=== PATIENT | male | born 1940 | race Caucasian/White ===

== ENCOUNTER → 2017-10-24 | Day surgery (SDC) | payer MEDICARE ==
[~2017-10-24] MED LIST: AMLODIPINE BESYL5 MG PO; ASPIRIN81 MG; ATORVASTATIN CA10 MG PO; BENZONATATE100 MG PO; DEXAMETHASONE SOD PHOS INJ 4 MG/ML VIAL ONE; FENOFIBRATE145 MG; FENTANYL CITRATE/PF 100MCG/2 ML INJ ONE; HYDRALAZINE HCL 20 MG/ML VIAL ONE; HYOSCYAMINE 0.125 MG TAB SL ONE; IOPAMIDOL 610MG/1ML 300 MG/ML VIAL IV ONE; LEVOFLOXACIN 500MG/D5W 100ML 100 ML IV ONE; LIDOCAINE HCL 2% LOCAL INJ 5 ML SDV VIAL INJ ONE; LISINOPRIL10 MG PO; METFORMIN HCL500 MG PO; METOPROLOL SUCC50 MG PO; MIDAZOLAM HCL 2 MG/2 ML VIAL ONE; ONDANSETRON HCL INJ 2 MG/ML VIAL ONE; PROPOFOL IV EMULSION 10 MG/ML 20 ML VIAL ONE; SEVOFLURANE INHAL SOLN 250 ML PEN BTL ONE
--- OUTSIDE RECORDS SUMMARY | 2017-10-24 09:48 | XMS REPORT | Clinical Summary ---
Author Author [facility] Organization [facility] Address Unknown Phone Unavailable Care Team Providers Care Quill Fixer Name Role Phone Dali Jesus MD PCP Allergies Not on File Current Medications Not on file Active Problems Not on file Encounters Date Type Specialty Care Team Description 10/10/2017 Hospital Radiology Alexx Perez, Calculus of kidney; Encounter Calculus of ureter 10/10/2017 Ancillary Radiology Alexx Perez, Calculus of kidney; Orders Calculus of ureter 10/08/2017 Hospital Radiology Alexx Perez, Calculus of kidney Encounter 09/20/2017 Transcribe Access Alexx Perez, Calculus of kidney Orders (Primary Dx) after 10/23/2016 Social History Tobacco Use Types Packs/Day Years Used Date Never Assessed Sex Assigned at Date Recorded Not on file Last Filed Vital Signs Not on file Plan of Treatment Health Maintenance Due Date Last Done Comments SHINGRIX VACCINE (#1) 1990 ZOSTER VACCINE 2000 PNEUMOCOCCAL 2005 POLYSACCHARIDE VACCINE AGE 65 AND OVER PNEUMOCOCCAL-13 2005 INFLUENZA VACCINE 01/30/2018 Results * ECG 12 lead (10/11/2017 2:10 PM) Component Value Ref Range Ventricular rate 69 Atrial rate 69 NM interval 214 QRSD interval 82 QT interval 396 QTC interval 424 P axis 1 72 QRS axis 1 55 T wave axis 84 EKG impression Sinus rhythm with 1st degree AV block with occasional premature ventricular complexes- Specimen Performing Laboratory [facility] [address] [place] [address] * XR Abdomen 1 Vw (10/10/2017 11:45 AM) Specimen Performing Laboratory [facility] [address] [place] [address] Narrative EXAMINATION:XR ABDOMEN 1 VW CLINICAL HISTORY:N20.0 Calculus of kidney, N20.1 Calculus of ureter COMPARISON:CT abdomen and pelvis without contrast from 10/08/2017 IMPRESSION: There is a rounded calcification overlying the anatomic location of the right renal pelvis measuring 1.6 x 1.3 cm. This likely represents the stone previously seen within the right renal pelvis on previous CT from 10/08/2017. Other punctate calcifications are seen to overlie the lower pole of the right kidney measuring up to 0.2 cm in size. No definite calcifications are seen to overlie the left kidney. No calcifications are seen within the pelvis. A nonspecific, nonobstructive bowel gas pattern is noted. No dilated gas-filled loops of large or small bowel. The bones of the abdomen and pelvis are unremarkable. Multiple calcified granulomas are seen within both lung bases. [facility]-[id number] Procedure Note Interface, Radiology Results Incoming - 10/10/2017 2:14 PM CDT EXAMINATION: XR ABDOMEN 1 VW CLINICAL HISTORY: N20.0 Calculus of kidney, N20.1 Calculus of ureter COMPARISON: CT abdomen and pelvis without contrast from 10/08/2017 IMPRESSION: There is a rounded calcification overlying the anatomic location of the right renal pelvis measuring 1.6 x 1.3 cm. This likely represents the stone previously seen within the right renal pelvis on previous CT from 10/08/2017. Other punctate calcifications are seen to overlie the lower pole of the right kidney measuring up to 0.2 cm in size. No definite calcifications are seen to overlie the left kidney. No calcifications are seen within the pelvis. A nonspecific, nonobstructive bowel gas pattern is noted. No dilated gas-filled loops of large or small bowel. The bones of the abdomen and pelvis are unremarkable. Multiple calcified granulomas are seen within both lung bases. [facility]-[id number] * CT Abdomen Pelvis Wo Contrast (10/08/2017 12:00 PM) Specimen Performing Laboratory [facility] [address] [place] [address] Narrative EXAMINATION:CT ABDOMEN PELVIS WO CONTRAST CLINICAL HISTORY:N20.0 Calculus of kidney, R O KIDNEY STONES TECHNIQUE: Multiple axial images of the abdomen and pelvis were obtained without intravenous administration of iodinated contrast. Sagittal and coronal computerized reformatted images were also obtained. The lack of intravenous contrast reduces the sensitivity of detecting solid organ disease. CT scans are performed using radiation dose reduction techniques. Technical factors are evaluated and adjusted to ensure appropriate moderation of exposure. Automated dose management technology is applied to adjust radiation exposure while achieving a diagnostic quality image. COMPARISON:None FINDINGS: There is a 1.3 x 1.0 cm calculus within the right renal pelvis. Smaller punctate 2-3 mm calculi are present within the mid and lower pole calyces of the right kidney. Mild right-sided hydronephrosis is present. Punctate 2 mm calculi present in the mid and lower pole calyces of the left kidney. A linear bandlike calcification is seen dependently within the bladder measuring approximately 2-3 mm in thickness but spanning the posterior wall the bladder measuring 5.0 cm in length. This may reflect bladder wall calcifications or possibly innumerable layering bladder calculi. The unenhanced spleen, adrenal glands, pancreas, gallbladder, and liver are unremarkable. There is calcified plaque within the abdominal aorta which is normal in caliber. There is no abdominal lymphadenopathy or ascites. No bowel obstruction is present. There are diverticula within the colon without findings of diverticulitis. Appendix is normal. There is a tiny fat-containing periumbilical hernia. The prostate gland is enlarged and measures 5.6 cm in AP dimension by 6.6 cm in transverse dimension by 6.2 cm in craniocaudal dimension. There is no pelvic mass or pelvic lymphadenopathy. A small fat-containing right inguinal hernia is present. Coronary artery calcifications are present. Innumerable noncalcified and calcified granulomas are present in the lung bases. There are degenerative changes of the lower thoracic and lumbosacral spine. Chronic appearing compression deformity L1 vertebral body is noted. IMPRESSION: 1.A 1.3 x 1.0 cm calculus is present in the right renal pelvis. There is mild right hydronephrosis. Smaller punctate 2-3 mm calculi are present within the mid to lower pole calyces of both kidneys. 2.A linear bandlike calcification in the dependent portion bladder measuring 2-3 mm in thickness may reflect either bladder wall calcifications are possibly innumerable bladder calculi. 3.Enlargement of the prostate gland [id number] Procedure Note Hm Interface, Radiology Results Incoming - 10/08/2017 12:17 PM CDT EXAMINATION: CT ABDOMEN PELVIS WO CONTRAST CLINICAL HISTORY: N20.0 Calculus of kidney, R O KIDNEY STONES TECHNIQUE: Multiple axial images of the abdomen and pelvis were obtained without intravenous administration of iodinated contrast. Sagittal and coronal computerized reformatted images were also obtained. The lack of intravenous contrast reduces the sensitivity of detecting solid organ disease. CT scans are performed using radiation dose reduction techniques. Technical factors are evaluated and adjusted to ensure appropriate moderation of exposure. Automated dose management technology is applied to adjust radiation exposure while achieving a diagnostic quality image. COMPARISON: None FINDINGS: There is a 1.3 x 1.0 cm calculus within the right renal pelvis. Smaller punctate 2-3 mm calculi are present within the mid and lower pole calyces of the right kidney. Mild right-sided hydronephrosis is present. Punctate 2 mm calculi present in the mid and lower pole calyces of the left kidney. A linear bandlike calcification is seen dependently within the bladder measuring approximately 2-3 mm in thickness but spanning the posterior wall the bladder measuring 5.0 cm in length. This may reflect bladder wall calcifications or possibly innumerable layering bladder calculi. The unenhanced spleen, adrenal glands, pancreas, gallbladder, and liver are unremarkable. There is calcified plaque within the abdominal aorta which is normal in caliber. There is no abdominal lymphadenopathy or ascites. No bowel obstruction is present. There are diverticula within the colon without findings of diverticulitis. Appendix is normal. There is a tiny fat-containing periumbilical hernia. The prostate gland is enlarged and measures 5.6 cm in AP dimension by 6.6 cm in transverse dimension by 6.2 cm in craniocaudal dimension. There is no pelvic mass or pelvic lymphadenopathy. A small fat-containing right inguinal hernia is present. Coronary artery calcifications are present. Innumerable noncalcified and calcified granulomas are present in the lung bases. There are degenerative changes of the lower thoracic and lumbosacral spine. Chronic appearing compression deformity L1 vertebral body is noted. IMPRESSION: 1. A 1.3 x 1.0 cm calculus is present in the right renal pelvis. There is mild right hydronephrosis. Smaller punctate 2-3 mm calculi are present within the mid to lower pole calyces of both kidneys. 2. A linear bandlike calcification in the dependent portion bladder measuring 2-3 mm in thickness may reflect either bladder wall calcifications are possibly innumerable bladder calculi. 3. Enlargement of the prostate gland [id number] after 10/23/2016 Insurance Payer Benefit Subscriber ID Type Phone Address Plan / Group [facility] MEDIC[facility] UNITED/CAR xxxxxxxxx HMO E ROBERT T [facility] [place] [address]
--- NOTE | 2017-10-24 11:31 | Diagnostic Imaging Report ---
PROCEDURE: Frontal and lateral views of the chest. COMPARISON: None. INDICATIONS: PRE OP FOR CALCULUS OF THE KIDNEY FINDINGS: Lines/tubes: None. Lungs: The lungs are well inflated and clear. There is no evidence of pneumonia or pulmonary edema. Numerous punctate calcified granuloma are present in the lungs bilaterally. Pleura: There is no pleural effusion or pneumothorax. Heart and mediastinum: The heart and the mediastinum are normal. Atherosclerotic calcifications. Bones: No acute bony abnormality. Small metallic plate projects over the right anterior chest wall. Degenerative changes of the thoracic spine. IMPRESSION: No acute radiographic abnormality. Dictated by: Ryan Schmidt M.D. on 10/24/2017 at 11:32 Electronically approved by: Ryan Schmidt M.D. on 10/24/2017 at 11:32
--- NOTE | 2017-10-24 15:02 | Operative Report ---
DATE OF PROCEDURE: October 24, 2017 PREOPERATIVE DIAGNOSES 1. Large right renal calculus 15 x 15 mm. 2. Multiple bladder calculi, over 50. 3. Prostatic obstruction. POSTOPERATIVE DIAGNOSES 1. Large right renal calculus 15 x 15 mm. 2. Multiple bladder calculi, over 50. 3. Prostatic obstruction. OPERATIONS 1. Cystourethroscopy and evacuation of bladder calculi, vesicolitholapaxy. 2. Insertion of right double-J urethral stent, 6 Russian x 26 cm. 3. Right renal extracorporeal shock wave lithotripsy. [employer]CHANDISER: Dr. Shimon Cadet. ANESTHETIC: General. Mr. Lares is a 76-year-old male who presented with a chief complaint of acute onset of severe pain on the right side. Workup showed that he has a large bladder calculus, about 15 x 15, in the right renal pelvis. He underwent a complete urological workup including cystoscopy which showed multiple bladder calculi, over 50. This patient was placed on the table in the lithotomy position and was prepped and draped in a sterile manner after satisfactory anesthesia. A #23 Russian cystoscope was used and cystourethroscopy was performed and it showed the urethra to be normal. The prostatic urethra was about 4 cm long, bilobar and occlusive. Cystoscopy was then performed using both right angle and the Foroblique lens and it was noted there were multiple bladder calculi, over 50. Both ureteral orifices were seen and were within normal position, configuration efflux. The bladder wall was markedly trabeculated. Under direct vision and fluoroscopic control, a 0.38 flexible tip Glidewire was then passed through the working channel of the cystoscope through the right ureteral orifice and then under direct vision and fluoroscopic control, was passed all the way out to the renal pelvis. A 6-Russian x 26 cm double-J stent was threaded over the guidewire through the cystoscope through the right ureteral orifice and again under direct and fluoroscopic control was passed all the way up to the renal pelvis. Leaving the upper end of the stent in the renal pelvis and the lower end of the stent in the bladder. The guidewire was removed. The bladder was drained and the cystoscope removed. This patient was then placed on the table in the supine position and the stone was brought up into view between F1 and F2 of the fluoroscopic monitors of the lithotripsy. The lithotripsy was then stopped, stopping at 2 kV and slowly and gradually increased to 7 kV. Observation of the stone pulverization was done at 200-250 shocks. It was felt that at 4,000 shocks the stone has almost completely pulverized except for 2 harder areas about 4 or 5 mm in diameter. Patient tolerated the procedure well and was taken to the recovery room in satisfactory condition. Plans for this patient is to be placed on Macrodantin 50 mg 1 twice a day for three weeks. Ultracet tablet 1 every 6 to 8 hours p.r.n. Ditropan 5 mg 1 twice a day. He is to return to the office in two weeks. Job#: [id number] JESSICA
== END | disposition home or self-care (01) ==
LOC: OR 09:46
PROVIDERS: ATTEND Specialist
DX: N21.0 Calculus in bladder (principal); N20.0 Calculus of kidney; N40.0 Benign prostatic hyperplasia without lower urinary tract symptoms; N32.0 Bladder-neck obstruction; I10 Essential (primary) hypertension; I25.10 Atherosclerotic heart disease of native coronary artery without angina pectoris; E11.9 Type 2 diabetes mellitus without complications; Z79.84 Long term (current) use of oral hypoglycemic drugs; Z01.818 Encounter for other preprocedural examination; F17.210 Nicotine dependence, cigarettes, uncomplicated; Z88.0 Allergy status to penicillin; Z95.2 Presence of prosthetic heart valve; Z79.82 Long term (current) use of aspirin
CPT/HCPCS: 36415; 50590; 52332; 71046; 82948; J0360; J1100; J1956; J2001; J2250; J2405; Q9967

== ENCOUNTER → 2017-11-07 | Day surgery (SDC) | payer MEDICARE ==
[~2017-11-07] MED LIST changes: -HYDRALAZINE HCL 20 MG/ML VIAL ONE; -HYOSCYAMINE 0.125 MG TAB SL ONE; -IOPAMIDOL 610MG/1ML 300 MG/ML VIAL IV ONE; +NITROFURANTOIN100 MG; +OXYBUTYNIN CHLOR5 MG PO; +TAMSULOSIN HCL0.4 MG
--- OUTSIDE RECORDS SUMMARY | 2017-11-07 07:37 | XMS REPORT | Clinical Summary ---
Author Author [facility] Address Unknown Phone Unavailable Care Team Providers Care General Warehouse Associate Name Role Phone Dali Jesus MD PCP Allergies Active Allergy Reactions Severity Noted Date Comments Penicillins 10/26/2017 unknown Current Medications No known medications Active Problems Not on file Encounters Date Type Specialty Care Team Description 10/29/2017 Hospital Radiology Alexx Perez, Calculus of ureter Encounter 10/29/2017 Ancillary Radiology Alexx Perez, Calculus of ureter Orders 10/26/2017 [facility] initial encounter MD Emiliano (Primary Dx); Sprain of right ankle, unspecified ligament, initial encounter; Contusion of multiple sites of right lower extremity, initial encounter 10/10/2017 [facility] Radiology Alexx Perez, Calculus of kidney; Encounter Calculus of ureter 10/10/2017 Ancillary Radiology Alexx Perez, Calculus of kidney; Orders Calculus of ureter 10/08/2017 Hospital Radiology Alexx Perez, Calculus of kidney Encounter 09/20/2017 Transcribe Access Alexx Perez, Calculus of kidney Orders (Primary Dx) after 11/06/2016 Social History Tobacco Use Types Packs/Day Years Used Date Never Smoker Smokeless Tobacco: Never Used Alcohol Use Drinks/Week oz/Week Comments No Sex Assigned at Date Recorded Not on file Last Filed Vital Signs Vital Sign Reading Time Taken Blood Pressure 121/68 10/26/2017 12:43 PM CDT Pulse 68 10/26/2017 12:43 PM CDT Temperature 36.3 C (97.4 F) 10/26/2017 11:13 AM CDT Respiratory Rate 18 10/26/2017 12:43 PM CDT Oxygen Saturation 97% 10/26/2017 12:43 PM CDT Inhaled Oxygen - - Concentration Weight 68 kg (150 lb) 10/26/2017 11:19 AM CDT Height 177.8 cm (5' 10") 10/26/2017 11:19 AM CDT Body Mass Index 21.52 10/26/2017 11:19 AM CDT Plan of Treatment Health Maintenance Due Date Last Done Comments SHINGRIX VACCINE (#1) 1990 ZOSTER VACCINE 2000 PNEUMOCOCCAL 2005 POLYSACCHARIDE VACCINE AGE 65 AND OVER PNEUMOCOCCAL-13 2005 INFLUENZA VACCINE 01/30/2018 Procedures Procedure Name Priority Date/Time Associated Diagnosis Comments SPLINT APPLICATION Routine 10/26/2017 Results for this 11:46 AM CDT procedure are in the results section. after 11/06/2016 Results * XR Abdomen 1 Vw (10/29/2017 2:43 PM) Only the most recent of 2 results within the time period is included. Specimen Performing [place] [address] Narrative EXAMINATION:XR ABDOMEN 1 VW CLINICAL HISTORY:N20.1 Calculus of ureter COMPARISON:None. IMPRESSION: Patient status post lithotripsy. A conglomerate of small linear calcification lateral to the right lower pole the largest calcification which was present previously is no longer present A stent is present in the right ureter. No calcifications identified along the course of the stent There is a nonspecific bowel gas pattern. No free air is identified. Calcified granuloma in the lumbar bases [facility]-[id number] Procedure Note Interface, Radiology Results Incoming - 10/29/2017 3:26 PM CDT EXAMINATION: XR ABDOMEN 1 VW CLINICAL HISTORY: N20.1 Calculus of ureter COMPARISON: None. IMPRESSION: Patient status post lithotripsy. A conglomerate of small linear calcification lateral to the right lower pole the largest calcification which was present previously is no longer present A stent is present in the right ureter. No calcifications identified along the course of the stent There is a nonspecific bowel gas pattern. No free air is identified. Calcified granuloma in the lumbar bases [id number] * XR Tibia Fibula 2 Vw Right (10/26/2017 12:05 PM) Specimen Performing Laboratory [place] [address] Narrative Procedure:XR TIBIA FIBULA 2 VW RIGHT REFERRING PHYSICIAN: MADINA ANN HISTORY:BONE PAINLEG COMPARISON: None FINDINGS: No evidence of fracture or dislocation is seen. The joint spaces are maintained. No osteolytic or osteoblastic lesion is identify. Mild atherosclerotic calcifications are noted. Regional soft tissue is unremarkable. No radiopaque foreign body is seen. XR TIBIA FIBULA 2 VW RIGHTacquired. IMPRESSION: No radiographic evidence of acute fracture or dislocation of the right tibia or fibula. [id number] Procedure Note Interface, Radiology Results Incoming - 10/26/2017 12:15 PM CDT Procedure:XR TIBIA FIBULA 2 VW RIGHT REFERRING PHYSICIAN: MADINA ANN HISTORY: BONE PAIN LEG COMPARISON: None FINDINGS: No evidence of fracture or dislocation is seen. The joint spaces are maintained. No osteolytic or osteoblastic lesion is identify. Mild atherosclerotic calcifications are noted. Regional soft tissue is unremarkable. No radiopaque foreign body is seen. XR TIBIA FIBULA 2 VW RIGHT acquired. IMPRESSION: No radiographic evidence of acute fracture or dislocation of the right tibia or fibula. [id number] * XR Ankle 3+ Vw Right (10/26/2017 12:04 PM) Specimen Performing Laboratory [facility] [address] [place] [address] Narrative Procedure:XR ANKLE 3VW RIGHT REFERRING PHYSICIAN:SHREE MULTANI HISTORY: pain COMPARISON: None FINDINGS: No fracture or dislocation is seen about the right ankle. The ankle mortise is maintained. No osteolytic or osteoblastic lesion is seen. Regional soft tissue is unremarkable. XR ANKLE 3VW RIGHT IMPRESSION: Negative right ankle exam with no evidence of acute fracture or dislocation. [id number] Procedure Note Hm Interface, Radiology Results Incoming - 10/26/2017 12:14 PM CDT Procedure:XR ANKLE 3 VW RIGHT REFERRING PHYSICIAN:SHREE MULTANI HISTORY: pain COMPARISON: None FINDINGS: No fracture or dislocation is seen about the right ankle. The ankle mortise is maintained. No osteolytic or osteoblastic lesion is seen. Regional soft tissue is unremarkable. XR ANKLE 3 VW RIGHT IMPRESSION: Negative right ankle exam with no evidence of acute fracture or dislocation. [id number] * SPLINT APPLICATION (10/26/2017 11:46 AM) Narrative Shree Multani MD 10/26/20174:47 PM Splint Application Performed by: MADINA ANN Authorized by: MADINA ANN Consent: Consent obtained:Verbal Consent given by:Patient Risks discussed:Discoloration, numbness, pain and swelling Alternatives discussed:No treatment Pre-procedure details: Sensation:Normal Skin color:Kaka Procedure details: Laterality:Right Location:Ankle Ankle:R ankle Cast type:Short leg Splint type:Ankle stirrup Supplies:Prefabricated splint Post-procedure details: Pain:Improved Sensation:Normal Skin color:Kaka Patient tolerance of procedure:Tolerated well, no immediate complications * ECG 12 lead (10/11/2017 2:10 PM) Component Value Ref Range Ventricular rate 69 Atrial rate 69 NE interval 214 QRSD interval 82 QT interval 396 QTC interval 424 P axis 1 72 QRS axis 1 55 T wave axis 84 EKG impression Sinus rhythm with 1st degree AV block with occasional premature ventricular complexes- Specimen Performing Laboratory [facility] [address] [place] [address] * CT Abdomen Pelvis Wo Contrast (10/08/2017 12:00 PM) Specimen Performing Laboratory [facility] [address] [place] [address] Narrative EXAMINATION:CT ABDOMEN PELVIS WO CONTRAST CLINICAL [...] bladder calculi. 3.Enlargement of the prostate gland [id number] Procedure Note Hm Interface, Radiology Results Incoming [...] calculi. 3. Enlargement of the prostate gland [id number] after 11/06/2016 Insurance Payer Benefit Subscriber ID Type Phone Address Plan / Group [facility] MEDIC[facility] UNITED/CAR xxxxxxxxx HMO E [facility] [address] [place] [address]
--- NOTE | 2017-11-07 10:49 | Operative Report ---
DATE OF PROCEDURE: November 07, 2017 PREOPERATIVE DIAGNOSES 1. Multiple right renal calculi. A. Mid-karla, multiple about 15-20 cluster. B. Lower pole karla, about 20 multiple clusters, post extracorporal shock wave lithotripsy. 2. Right double J-ureteral stent. 3. Urinary retention. 4. Prostatic obstruction secondary to BPH. POSTOPERATIVE DIAGNOSES 1. Multiple right renal calculi. A. Mid-karla, multiple about 15-20 cluster. B. Lower pole karla, about 20 multiple clusters, post extracorporal shock wave lithotripsy. 2. Right double J-ureteral stent. 3. Urinary retention. 4. Prostatic obstruction secondary to BPH. OPERATION: Right renal extracorporal shock wave lithotripsy, mid-karla with complete pulverization of the multiple stone clusters. ANESTHESIA: General. Mr. Lares is a 76-year-old male who presented with the chief complaint of acute onset of pain. On workup, was noted to have a large 15-16 mm calculus. He underwent right renal ESWL, and the resultant effect was multiple calculi in the midpole karla and multiple in the lower pole karla. He was brought at this time for definitive pulverization and fragmentation of the calculi. This patient was placed on the table in the supine position, and the midpole caliceal calculi was brought into position between F1 and F2 of the fluoroscopic monitor. The lithotripsy was then started starting at 2 kilovolts and slowly and gradually increased to 7 kilovolts. Attention was now directed to the pulverization of the midpole, and observation of the stone pulverization was done at 200 to 250 shocks intermittently. At 4000 shocks, it was felt that the stones in the midpole karla has completely powdered and fragmented completely. The patient tolerated the procedure well, and was taken to the recovery room in satisfactory condition. PLANS: For this patient, is to wait for about 4-6 weeks before we go ahead with probably percutaneous nephrostomy for the large amount of calculi and clusters in the right lower pole karla. In the meantime, he will return to the office in 2 weeks with a KUB or a CT scan. Once this was done, will proceed with his cystoscopy and TURP for his urinary retention. He is to return to the office in 2 weeks. Job#: [id number] [place]
== END | disposition home or self-care (01) ==
LOC: OR 07:34
PROVIDERS: ATTEND Specialist
DX: N20.0 Calculus of kidney (principal); Z96.0 Presence of urogenital implants; N40.1 Benign prostatic hyperplasia with lower urinary tract symptoms; N13.8 Other obstructive and reflux uropathy; R33.8 Other retention of urine; F17.210 Nicotine dependence, cigarettes, uncomplicated; I44.0 Atrioventricular block, first degree; I49.3 Ventricular premature depolarization; I25.10 Atherosclerotic heart disease of native coronary artery without angina pectoris; I10 Essential (primary) hypertension; E11.9 Type 2 diabetes mellitus without complications; Z88.0 Allergy status to penicillin; Z79.82 Long term (current) use of aspirin; Z79.84 Long term (current) use of oral hypoglycemic drugs
CPT/HCPCS: 36415; 50590; 82948; J1100; J1956; J2001; J2250; J2405

== ENCOUNTER → 2017-12-12 | Day surgery (SDC) | payer MEDICARE ==
[~2017-12-12] MED LIST changes: -DEXAMETHASONE SOD PHOS INJ 4 MG/ML VIAL ONE; +GENTAMICIN 120MG/NS 100ML 100 ML ONE; +HYDRALAZINE HCL 20 MG/ML VIAL ONE; +HYOSCYAMINE 0.125 MG TAB ONE; +IOPAMIDOL 610MG/1ML 300 MG/ML VIAL IV ONE; +MEPERIDINE HCL INJ 50 MG/ML INJ ONE; +MORPHINE SULFATE 2 MG/ML SYR ONE; +MORPHINE SULFATE INJ 10 MG/ML ONE; -ONDANSETRON HCL INJ 2 MG/ML VIAL ONE
--- NOTE | 2017-12-12 13:50 | Operative Report ---
DATE OF PROCEDURE: December 12, 2017 PREOPERATIVE DIAGNOSES 1. Urinary retention. 2. BPH, massive. 3. Right double J urethral stent. POSTOPERATIVE DIAGNOSES 1. Urinary retention. 2. BPH, massive. 3. Right double J urethral stent. 4. Cystoscopy. Surgery cancelled because of malfunctioning laser scope machine. Migrated right urethral orifice into the ureter. OPERATION: Cystourethroscopy. SURGEON: Alexx Perez MD GRAIN DISTRIBUTOR: Dr. Roque. Mr. Lares is a 76-year-old male who underwent cystoscopy, stent placement and ESWL for a large renal calculus. His postop period for the calculus was completely satisfactory and right kidney stone is completely pulverized and gone. This patient was placed on the table, in the lithotomy position, was prepped and draped in a sterile manner after satisfactory anesthesia. A number [id number] cystoscope was used and cystourethroscopy was performed and the tail end of the stent has migrated upwards and could not be located. Attempting prostatectomy using the laser scope machine, the laser scope was misfiring and does not have any coagulation power. For this reason the laser scope prostatectomy was cancelled. Plan is to bring this patient for a percutaneous nephrostomy and retrieve the stent from the kidney site. Then we will go ahead with TURP lasers. Job#: [id number] JESSICA
== END | disposition home or self-care (01) ==
LOC: OR 09:51
PROVIDERS: ATTEND Specialist
DX: Z87.442 Personal history of urinary calculi (principal); N40.0 Benign prostatic hyperplasia without lower urinary tract symptoms; Z96.0 Presence of urogenital implants; N36.8 Other specified disorders of urethra; J44.9 Chronic obstructive pulmonary disease, unspecified; I10 Essential (primary) hypertension; E11.9 Type 2 diabetes mellitus without complications; F17.200 Nicotine dependence, unspecified, uncomplicated; Z88.0 Allergy status to penicillin; Z79.82 Long term (current) use of aspirin; Z79.84 Long term (current) use of oral hypoglycemic drugs; Z95.2 Presence of prosthetic heart valve
CPT/HCPCS: 52648; 76000; J0360; J1580; J1956; J2001; J2175; J2250; J2270